=== PATIENT | male | born 1995 | race Caucasian/White ===

== ENCOUNTER 2021-03-26 11:23 | Emergency (ER) | payer OTHER, SELFPAY ==
[2021-03-26 11:37] VITALS: BP 146/84; PULSE 78; RESP 18; TEMP 37.1; O2SAT 98
--- NOTE | 2021-03-26 11:41 | ED.URI ---
HPI - URI/Sore Throat General Chief Complaint: Upper Respiratory Infection Stated Complaint: stuffy nose, hoarse voice Source: patient and RN notes reviewed Mode of arrival: ambulatory History of Present Illness HPI Narrative: This is a 25-year-old male presented to urgent care with complaints of hoarseness, nasal congestion, cough, postnasal dripping, sore throat and nausea and vomiting that developed 3 days ago. Patient notes that he did take [id number] allergy medication while at home with little relief he does have a history of sinuitis and strep. The patient denies sob CP, palpitation, extremity numbness, lightheadedness, dizziness, constipation, diarrhea, chills, or fever. Related Data Home Medications Medication Instructions Recorded Confirmed escitalopram oxalate 10 mg PO DAILY 03/26/21 03/26/21 lisinopril 10 mg PO DAILY 03/26/21 03/26/21 Allergies Allergy/AdvReac Type Severity Reaction Status Date / Time No Known Allergies Allergy Other Uncoded 03/26/21 11:27 Review of Systems Review of Systems: Narrative: A 14 organ system Review of Systems was performed and pertinent positives included in the HPI, otherwise remaining ROS is negative. [facility] Family History Family History (Updated 03/26/21 @ 11:42 by WILDER Gilbert) Other Family history non-contributory Social History Social History Gender identity (if verbalized by the patient): Male Exam Narrative: Exam Narrative: GENERAL: This is a well-nourished, well-developed patient, in no apparent distress. HEAD: normocephalic, atraumatic. EYES: PERRL. Sclera clear/white. Vision is grossly intact. EARS: External ears normal, auditory canals clear and without drainage, TMs normal without perforation. Hearing grossly intact. NOSE: External nose normal with no obvious nasal discharge, nares without redness, no rhinorrhea. THROAT: Mucous membranes moist, posterior pharynx edematous and erythematous with enlarged tonsils. NECK: Neck supple, non-tender without lymphadenopathy, masses or thyromegaly. CARDIOVASCULAR: Regular rate and rhythm without murmurs, gallops, or rubs. RESPIRATORY: Clear to auscultation. Breath sounds equal bilaterally. No wheezes, rales, or rhonchi. GASTROINTESTINAL: Abdomen soft, non-tender, nondistended. Bowel sounds are active. No hepato-splenomegaly, or palpable masses. No guarding. SKIN: warm, intact with no suspicious lesions or rash, good texture and turgor. NEURO: awake, alert, and oriented to person, place and time. There were no obvious focal neurologic abnormalities. Steady gait EXTREMITIES: Normal range of motion. No edema. No calf tenderness. Negative Homans sign bilaterally. BACK: Nontender without deformity or crepitance. No flank tenderness. Course Vital Signs Vital signs: Vital Signs Temperature 98.7 F 03/26/21 11:37 Pulse Rate 78 03/26/21 11:37 Respiratory Rate 18 03/26/21 11:37 Blood Pressure 146/84 H 03/26/21 11:37 Pulse Oximetry 98 03/26/21 11:37 Temperature 98.7 F 03/26/21 11:37 Pulse Rate 78 03/26/21 11:37 Respiratory Rate 18 03/26/21 11:37 Blood Pressure 146/84 H 03/26/21 11:37 Pulse Oximetry 98 03/26/21 11:37 MDM - URI/Sore Throat Lab Data Labs: Strep Screen Presumptive Negative *(Reference Range: Negative)* Discharge Plan Discharge Clinical Impression: Pharyngitis Qualifiers: Pharyngitis/tonsillitis etiology: unspecified etiology Qualified Code(s): J02.9 - Acute pharyngitis, unspecified Patient Disposition: Home, Self-Care Condition: Stable Instructions: Antibiotic Form Additional Instructions: Follow with your primary care physician in 1 week Take all medication as prescribed Treatment is aimed toward your specific symptoms. You must treat your symptoms in order to feel better while the virus runs it's course. Recommend antihistamine such as Benadryl at night time and Gertrude
== END 2021-03-26 12:07 | disposition home or self-care (01) ==
PROVIDERS: Emergency Provider Nurse Practitioner; PCP Family Medicine
DX: J02.9 Acute pharyngitis, unspecified (principal)
CPT/HCPCS: 87081; 87880; 99213; G0463

== ENCOUNTER 2021-06-17 10:29 | Emergency (ER) | payer OTHER, SELFPAY ==
[2021-06-17 10:43] VITALS: BP 140/81; PULSE 69; RESP 16; TEMP 36.4; O2SAT 97
--- NOTE | 2021-06-17 11:09 | ED.URI ---
HPI - URI/Sore Throat General Chief Complaint: Upper Respiratory Infection Stated Complaint: Headache,Sore Throat Source: patient Mode of arrival: ambulatory Limitations: no limitations History of Present Illness HPI Narrative: Patient is a 26-year-old male who presents complaining of sore throat, chills, body aches x1 day. He reports a history of strep and reports that he gets strep frequently. He reports vaccinated for Covid with [email or web address] in 01/04. 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 He denies known exposure to Covid at this time. MD elicited complaint: sore throat Related Data Home Medications Medication Instructions Recorded Confirmed escitalopram oxalate 10 mg PO DAILY 03/26/21 06/17/21 lisinopril 10 mg PO DAILY 03/26/21 06/17/21 Allergies Allergy/AdvReac Type Severity Reaction Status Date / Time No Known Allergies Allergy Other Uncoded 06/17/21 10:53 Review of Systems Review of Systems: CONSTITUTIONAL: Reports chills and generalized body aches EYES: Denies visual changes, redness, or discharge. ENT: Reports sore throat CARDIOVASCULAR: Denies chest pain, palpitations, or edema. RESPIRATORY: Denies cough or dyspnea. GASTROINTESTINAL: Denies abdominal pain, nausea, vomiting, or diarrhea. GENITOURINARY: Denies dysuria or hematuria. SKIN: Denies rash or itching. MUSCULOSKELETAL: Denies back pain, joint pain, or myalgia. NEUROLOGIC: Denies headache, numbness, dizziness, or weakness. PSYCHIATRIC: Denies anxiety or depression. [facility] Past Medical History Medical History Depression HTN (hypertension) Surgical History Surgical History No significant past surgical history Family History Family History Other Family history non-contributory Social History Social History (Updated 06/17/21 @ 11:11 by OMAR Hanks) Smoking status: Never smoker Alcohol intake: current Alcohol use details: Occasional Substance use: never Living arrangements: with family Occupation/Education: occupation Gender identity (if verbalized by the patient): Male Comments At the time of signature, I have reviewed and agree with nursing past medical, surgical, social, and family history unless otherwise noted. Please see nursing chart for further information. There is no relevant family history pertinent to the presenting complaint. Exam Narrative: GENERAL: Well-appearing, well-nourished, and in no acute distress. HEAD: Normocephalic, atraumatic. EYES: EOMI. No redness or drainage. Conjunctiva are normal. ENT: Mucous membranes pink and moist. Nares clear. No rhinorrhea. Throat with moderate erythema and edema, tonsils 3+, no exudate. Uvula midline. NECK: AROM. Supple. No lymphadenopathy. CHEST: No respiratory distress. HEART: Regular rate and rhythm. EXTREMITIES: Normal range of motion. No edema. SKIN: Warm, dry, no rash. NEURO: No focal deficits. Alert and oriented x3. Gait steady. PSYCH: Normal affect. No signs of depression or anxiety. Course Vital Signs Vital signs: Vital Signs Temperature 36.4 C 06/17/21 10:43 Pulse Rate 69 06/17/21 10:43 Respiratory Rate 16 06/17/21 10:43 Blood Pressure 140/81 06/17/21 10:43 Pulse Oximetry 97 06/17/21 10:43 Temperature 36.4 C 06/17/21 10:43 Pulse Rate 69 06/17/21 10:43 Respiratory Rate 16 06/17/21 10:43 Blood Pressure 140/81 06/17/21 10:43 Pulse Oximetry 97 06/17/21 10:43 Reviewed. Patient has been instructed to follow-up with his PCP regarding his blood pressure. MDM - URI/Sore Throat MDM Narrative Medical decision making narrative: Patient's rapid strep is negative, Covid PCR sent at this time. Discussed with patient treating for tonsillitis. Patient also aware of the need for quarantine. Patient agrees with plan of care. Patient i
[2021-06-18 19:18] LABS: SARS-CoV-2 RNA PCR Negative
== END 2021-06-17 11:22 | disposition home or self-care (01) ==
PROVIDERS: Emergency Provider Nurse Practitioner; PCP Family Medicine
DX: J03.90 Acute tonsillitis, unspecified (principal); Z20.822 Contact with and (suspected) exposure to COVID-19; F32.9 Major depressive disorder, single episode, unspecified; I10 Essential (primary) hypertension
CPT/HCPCS: 87081; 87880; 99213; C9803; G0463; U0003; U0005

== ENCOUNTER 2021-07-28 11:31 | Emergency (ER) | payer OTHER, SELFPAY ==
--- NOTE | 2021-07-28 11:36 | ED.URI ---
HPI - URI/Sore Throat General Chief Complaint: Upper Respiratory Infection Stated Complaint: Cough,Sinus Source: patient and RN notes reviewed Mode of arrival: ambulatory Limitations: no limitations History of Present Illness HPI Narrative: Dheeraj is a 26-year-old male patient who arrives ambulatory to the [facility] today with complaint of productive cough, sinus congestion ,ears ringing, and throat drainage for 14 days. He has taken Mucinex and DayQuil [id number] for without relief. Patient also says his chest hurts with cough. Patient states he should be taking Zyrtec daily and has not been. Patient states he has a history of chronic allergies. Patient also states he has a history of asthma as a child. Patient states he has not had any issues with his asthma in years. Patient is vaccinated for Covid with the [employer] vaccine. Patient has a history of strep in June was treated with penicillin; states his throat is better, but the cough and congestion has remained since his last visit. Denies recent exposure to anyone with Covid. MD elicited complaint: cough and sinus pain Related Data Home Medications Medication Instructions Recorded Confirmed escitalopram oxalate 10 mg PO DAILY 03/26/21 07/28/21 lisinopril 10 mg PO DAILY 03/26/21 07/28/21 Allergies Allergy/AdvReac Type Severity Reaction Status Date / Time No Known Allergies Allergy Other Uncoded 07/28/21 11:51 Review of Systems Review of Systems: CONSTITUTIONAL: Denies body aches, fever, chills, or sweats. EYES: Denies visual changes, redness, or discharge. ENT: + rhinorrhea, congestion, , + ear ringing/fullness. denies sore throat CARDIOVASCULAR: Denies chest pain, palpitations, or edema. RESPIRATORY: + productive cough - dyspnea. GASTROINTESTINAL: Denies abdominal pain, nausea, vomiting, or diarrhea. GENITOURINARY: Denies dysuria or hematuria. SKIN: Denies rash, itching, or wounds. MUSCULOSKELETAL: Denies back pain, joint pain, or myalgia. NEUROLOGIC: Denies headache, numbness, tingling, or weakness. PSYCH: Denies depression or anxiety. All systems reviewed & are unremarkable except as noted in HPI and below PMFSH Past Medical History Medical History Depression HTN (hypertension) Surgical History Surgical History No significant past surgical history Family History Family History Other Family history non-contributory Social History Social History Smoking status: Never smoker Alcohol intake: current Alcohol use details: Occasional Substance use: never Gender identity (if verbalized by the patient): Male Comments At time of signature, I have reviewed and agree with nursing past medical, surgical, social and family history unless otherwise noted. Please see nursing chart for further information. There is no relevant family history pertinent to the presenting complaint Exam Narrative: GENERAL: Well-appearing, well-nourished, and in no acute distress. HEAD: Normocephalic, atraumatic. EYES: EOMI. No redness or drainage. Conjunctivae normal. ENT: Mucous membranes pink and moist. Nares: clear rhinorrhea. TMs opaque, fluid filled, mild bulging. Throat with clear post nasal discharge. Uvula midline; Maxillary and frontal sinus tenderness with palpation. NECK: Normal AROM. Supple. Right Anterior cervical lymphadenopathy. CHEST: No respiratory distress. Clear to auscultation. MUSCULOSKELETAL: No bony tenderness. EXTREMITIES: Normal range of motion. No edema. SKIN: Warm, dry, no rash. Capillary refill normal. Normal skin turgor. NEURO: No focal deficits. Alert and oriented x3. Gait steady. PSYCH: Normal affect. No signs of depression or anxiety. Course Vital Signs Vital signs: Vital S
[2021-07-28 11:40] VITALS: BP 136/75; PULSE 92; RESP 20; TEMP 37.4; O2SAT 99
== END 2021-07-28 12:22 | disposition home or self-care (01) ==
PROVIDERS: Emergency Provider Nurse Practitioner Family; PCP Family Medicine
DX: U07.1 COVID-19 (principal); I10 Essential (primary) hypertension; F32.9 Major depressive disorder, single episode, unspecified
CPT/HCPCS: 87426; 99213; C9803; G0463